=== PATIENT | male | born 1965 | race Caucasian/White ===

== ENCOUNTER → 2017-11-08 | Emergency (ER) | payer OTHER ==
[~2017-11-08] VITALS: Ht 177.8 cm; Wt 71.2 kg
[~2017-11-08] MED LIST: ALBUTEROL0.63 MG/3; AVAPRO300 MG; HUMALOG MI100 UNIT/2; LIPITOR40 MG; NITRO-DUR1 EAC1; PLAVIX75 MG
== END | disposition left against medical advice (07) ==
LOC: ER 17:29
DX: R42 Dizziness and giddiness (principal); R11.11 Vomiting without nausea
CPT/HCPCS: 99284; 36415; 70450; 71045; 93005; 96365; 96366; J2765; J3490; J7050